=== PATIENT | female | born 1995 | race Caucasian/White ===

== ENCOUNTER 2020-01-04 20:17 | Emergency (ER) | payer SELFPAY ==
[~2020-01-04] VITALS: Ht 149.9 cm; Wt 53.6 kg
[2020-01-04 20:17] VITALS: BP 123/73
[2020-01-04] MEDS ORDERED: AMOX1TAB61 PO (20:47)
--- NOTE | 2020-01-04 20:47 | PHYS DOC ---
Past History Past Medical History: Asthma, Bronchitis, Fibromyalgia, Migraines, Other Additional Past Medical Histor: RLS Past Surgical History: Tubal ligation Alcohol Use: None Additional Alcohol Information: 2 yrs sober General Adult EDM: Chief Complaint: EARACHE/EAR PAIN HPI: HPI: 24 year old female presents with right ear pain for last 2 days. Patient thought she had a pimple in her so she attempted to pop it with a "really hot Q-tip". She states that she had some drainage and thought it would improve, but the pain is still there. She has had intermittent ear infections as an adult. She presents tonight because the pain is radiating into her jaw and cheek. She denies fever or chills. She has no other complaints this time. Review of Systems: Review of Systems: Constitutional: Denies fever or chills Eyes: Denies change in visual acuity HENT: Ear pain Respiratory: Denies cough or shortness of breath Cardiovascular: Denies chest pain or edema GI: Denies abdominal pain, nausea, vomiting, bloody stools or diarrhea : Denies dysuria Musculoskeletal: Denies back pain or joint pain Integument: Denies rash Neurologic: Denies headache, focal weakness or sensory changes Endocrine: Denies polyuria or polydipsia Lymphatic: Denies swollen glands Psychiatric: Denies depression or anxiety Heart Score: Risk Factors: Risk Factors: DM, Current or recent (<one month) smoker, HTN, HLP, family history of CAD, obesity. Risk Scores: Score 0 - 3: 2.5% MACE over next 6 weeks - Discharge Home Score 4 - 6: 20.3% MACE over next 6 weeks - Admit for Clinical Observation Score 7 - 10: 72.7% MACE over next 6 weeks - Early Invasive Strategies Allergies: Allergies: Allergies Coded Allergies Type Severity Reaction Last Updated Verified azithromycin Allergy Unknown 01/04/20 Yes banana Allergy Unknown 01/04/20 Yes benzoyl peroxide Allergy Unknown 01/04/20 Yes lidocaine Allergy Unknown 01/04/20 Yes menthol Allergy Unknown 01/04/20 Yes methyl salicylate Allergy Unknown 01/04/20 Yes Physical Exam: PE: Constitutional: Well developed, well nourished, no acute distress, non-toxic francisca earance. [] HENT: Normocephalic, atraumatic, bilateral external ears normal, oropharynx moist, no oral exudates, nose normal. The superior part of the right eardrum was erythematous. Tenderness along the superior canal. [] Eyes: PERRLA, EOMI, conjunctiva normal, no discharge. [] Neck: Normal range of motion, no tenderness, supple, no stridor. [] Cardiovascular: Heart rate regular rhythm, no murmur [] Lungs & Thorax: Bilateral breath sounds clear to auscultation [] Abdomen: Bowel sounds normal, soft, no tenderness, no masses, no pulsatile masses. [] Skin: Warm, dry, no erythema, no rash. [] Back: No tenderness, no CVA tenderness. [] Extremities: No tenderness, no cyanosis, no clubbing, ROM intact, no edema. [] Neurologic: Alert and oriented X 3, normal motor function, normal sensory function, no focal deficits noted. [] Psychologic: Affect normal, judgement normal, mood normal. [] Current Patient Data: Vital Signs: Vital Signs Date Time Temp Pulse Resp B/P (MAP) Pulse Ox O2 Delivery O2 Flow Rate FiO2 01/04/20 20:17 98.3 98 16 123/73 (90) 98 Room Air EKG: EKG: [] Radiology/Procedures: Radiology/Procedures: [] Course & Med Decision Making: Course & Med Decision Making Pertinent Labs and Imaging studies reviewed. (See chart for details) The patient appears to the right otitis media. I'll treat her with Augmentin for 10 days. I will give the first dose the emergency room. She is stable for [facility] at this time. [] Dragon Disclaimer: Draglianne Disclaimer: This electronic medical record was generated, in whole or in part, using a voice recognition dictation system. Departure Departure: Impression: Primary Impression: Right otitis media Qualified Codes: H65.01 - Acute serous otitis media, right ear Disposition: HOME, SELF-CARE Condition: STABLE Referrals: PCP,NO (PCP) Patient Instructions: Otitis Media, Adult, [id number] Scripts Amoxicillin/Potassium Clav (AUGMENTIN 875-125 TABLET) 1 Each Tablet 1 TAB PO BID for otitis media for 10 Days, #20 TAB 0 Refills Prov: FELICIA RAM DO 01/04/20 FELICIA RAM DO Jan 04, 2020 20:47
[2020-01-04] MEDS: AMOXICILLIN/K CLAV 875/125MG TABLET. PO ONE (20:49)
== END 2020-01-04 20:50 | disposition home or self-care (01) ==
LOC: ER 20:17
DX: H65.01 Acute serous otitis media, right ear (principal); J45.909 Unspecified asthma, uncomplicated; M79.7 Fibromyalgia; G43.909 Migraine, unspecified, not intractable, without status migrainosus; Z88.1 Allergy status to other antibiotic agents; Z88.6 Allergy status to analgesic agent; Z91.018 Allergy to other foods; Z88.8 Allergy status to other drugs, medicaments and biological substances
CPT/HCPCS: 99283

== ENCOUNTER 2020-01-25 14:44 | Emergency (ER) | payer SELFPAY ==
[~2020-01-25] VITALS: Ht 149.9 cm; Wt 53.6 kg
[~2020-01-25 14:44] MED LIST: AMOX1TAB61 PO
[2020-01-25 15:16] VITALS: BP 103/62
--- NOTE | 2020-01-25 15:39 | PHYS DOC ---
Past History Past Medical History: Asthma, Bronchitis, Fibromyalgia, Migraines, Other Additional Past Medical Histor: RLS Past Surgical History: Tubal ligation Alcohol Use: None General Adult EDM: Chief Complaint: EARACHE/EAR PAIN HPI: HPI: 24-year-old female presents with right ear pain. The patient was seen in this emergency room a couple weeks ago and diagnosed with an otitis media. She took her antibiotics as prescribed. The pain has not improved at all. She states that she still has a click when she opens and closes her jaw on the right side. That whole side of her face is hurting at this time. She has not taken any other medications for it. Denies fever chills. Review of Systems: Review of Systems: Constitutional: Denies fever or chills Eyes: Denies change in visual acuity HENT: Right ear and jaw pain Respiratory: Denies cough or shortness of breath Cardiovascular: Denies chest pain or edema GI: Denies abdominal pain, nausea, vomiting, bloody stools or diarrhea : Denies dysuria Musculoskeletal: Denies back pain or joint pain Integument: Denies rash Neurologic: Denies headache, focal weakness or sensory changes Endocrine: Denies polyuria or polydipsia Lymphatic: Denies swollen glands Psychiatric: Denies depression or anxiety Heart Score: Risk Factors: Risk Factors: DM, Current or recent (<one month) smoker, HTN, HLP, family history of CAD, obesity. Risk Scores: Score 0 - 3: 2.5% MACE over next 6 weeks - Discharge Home Score 4 - 6: 20.3% MACE over next 6 weeks - Admit for Clinical Observation Score 7 - 10: 72.7% MACE over next 6 weeks - Early Invasive Strategies Allergies: Allergies: Allergies Coded Allergies Type Severity Reaction Last Updated Verified azithromycin Allergy Unknown 01/04/20 Yes banana Allergy Unknown 01/04/20 Yes benzoyl peroxide Allergy Unknown 01/04/20 Yes lidocaine Allergy Unknown 01/04/20 Yes menthol Allergy Unknown 01/04/20 Yes methyl salicylate Allergy Unknown 01/04/20 Yes Physical Exam: PE: Constitutional: Well developed, well nourished, no acute distress, non-toxic appearance. [] HENT: Normocephalic, atraumatic, bilateral external ears normal, oropharynx moist, no oral exudates, nose normal. Bilateral tympanic membranes normal. Tenderness over the right TMJ with palpable click. [] Eyes: PERRLA, EOMI, conjunctiva normal, no discharge. [] Neck: Normal range of motion, no tenderness, supple, no stridor. [] Cardiovascular:Heart rate regular rhythm, no murmur [] Lungs & Thorax: Bilateral breath sounds clear to auscultation [] Abdomen: Bowel sounds normal, soft, no tenderness, no masses, no pulsatile masses. [] Skin: Warm, dry, no erythema, no rash. [] Back: No tenderness, no CVA tenderness. [] Extremities: No tenderness, no cyanosis, no clubbing, ROM intact, no edema. [] Neurologic: Alert and oriented X 3, normal motor function, normal sensory function, no focal deficits noted. [] Psychologic: Affect normal, judgement normal, mood normal. [] Current Patient Data: Vital Signs: Vital Signs Date Time Temp Pulse Resp B/P (MAP) Pulse Ox O2 Delivery O2 Flow Rate FiO2 01/25/20 15:16 98.2 70 16 103/62 (76) 98 Room Air EKG: EKG: [] Radiology/Procedures: Radiology/Procedures: [] Course & Med Decision Making: Course & Med Decision Making Pertinent Labs and Imaging studies reviewed. (See chart for details) The patient's ears are unremarkable. Based on the history my exam, this sounds like TMJ. I have advised that she ice the area, take ibuprofen regularly, and see if it improves. If not she will follow-up with her dentist for further options. She is stable for discharge at this time. [] Lakeisha Disclaimer: Lakeisha Disclaimer: This electronic medical record was generated, in whole or in part, using a voice recognition dictation system. Departure Departure: Impression: Primary Impression: Right-sided temporomandibular joint pain-dysfunction syndrome Disposition: HOME, SELF-CARE Condition: STABLE Referrals: PCP,NO (PCP) Patient Instructions: Temporomandibular Problems Additional Instructions: You can take 600 mg of ibuprofen 3 times a day or 500 mg of naproxen twice a day for the next 3 to 4 days. You should take either 1 of these with a little bit of food. You can also ice your jaw several times a day. Try to eat soft foods. FELICIA RAM DO January 25, 2020 15:39
== END 2020-01-25 15:42 | disposition home or self-care (01) ==
LOC: ER 14:44
DX: M26.621 Arthralgia of right temporomandibular joint (principal); H92.01 Otalgia, right ear; J45.909 Unspecified asthma, uncomplicated; M79.7 Fibromyalgia; G43.909 Migraine, unspecified, not intractable, without status migrainosus; Z98.51 Tubal ligation status; Z88.1 Allergy status to other antibiotic agents; Z91.018 Allergy to other foods; Z88.8 Allergy status to other drugs, medicaments and biological substances; Z88.6 Allergy status to analgesic agent
CPT/HCPCS: 99282

== ENCOUNTER 2021-01-30 14:17 | Emergency (ER) | payer SELFPAY ==
[~2021-01-30] VITALS: Ht 149.9 cm; Wt 53.6 kg
[2021-01-30] MEDS: KETOROLAC 15 MG/ML VIAL. IVP ONE (15:50)
[2021-01-30] MEDS: IV NORMAL SALINE 1,000ML 1,000 ML IV ONE (15:50)
[2021-01-30] MEDS: CYCLOBENZAPRINE 10 MG TABLET. PO ONE (15:50)
[2021-01-30 16:39] LABS: BASO % 0 % (0-3); CALCIUM 7.9 mg/dL (8.5-10.1); CREATININE 0.9 mg/dL (0.6-1.0); EOS % 0 % (0-3); GFR 75.1; HEMATOCRIT 40.7 % (36.0-47.0); HEMOGLOBIN 13.6 g/dL (12.0-15.5); LYMPH # 1.7 x10^3/uL (1.0-4.8); LYMPH % 10 % (24-48); MEAN CORPUSCULAR HEMOGLOBIN 30 pg (25-35); MEAN CORPUSCULAR HGB CONC 33 g/dL (31-37); MEAN CORPUSCULAR VOLUME 90 fL (79-100); MONO # 0.7 x10^3/uL (0.0-1.1); MONO % 5 % (0-9); NEUT % 85 % (31-73); PLATELET COUNT 237 x10^3/uL (140-400); POTASSIUM 3.8 mmol/L (3.5-5.1); RED BLOOD COUNT 4.55 x10^6/uL (3.50-5.40); RED CELL DISTRIBUTION WIDTH 13.1 % (11.5-14.5); WHITE BLOOD COUNT 16.5 x10^3/uL (4.0-11.0)
[2021-01-30 17:07] LABS: % LYMPHS 15 % (24-48); % MONOS 3 % (0-10); % SEGS 82 % (35-66)
[2021-01-30 17:08] LABS: PLT ESTIMATE ADEQUATE (ADEQUATE)
[2021-01-30] MEDS ORDERED: CYCL-331 PO (17:46)
--- NOTE | 2021-01-30 17:46 | PHYS DOC ---
Past History Past Medical History: Asthma, Bronchitis, Fibromyalgia, Migraines, Other Additional Past Medical Histor: RLS (KADEN MANUEL APRN) Past Surgical History: Tubal ligation (KADEN MANUEL APRN) Alcohol Use: None (KADEN MANUEL APRN) General Adult EDM: Chief Complaint: BACK INJURY HPI: HPI: Patient is a 25-year-old female who presents with lower back pain that radiates down her right leg. Patient states that she was in the shower and felt like she was unable to stand due to the burning and tingling in her right leg. Patient is also reporting an increase in clotting. Patient is currently on her period and states that she is having more clots than normal. Patient denies abdominal pain. Patient denies recent illness. Patient has history of anxiety, asthma, fibromyalgia. (KADEN MANUEL APRN) Review of Systems: Review of Systems: Constitutional: Denies fever or chills Eyes: Denies change in visual acuity HENT: Denies nasal congestion or sore throat Respiratory: Denies cough or shortness of breath Cardiovascular: Denies chest pain or edema GI: Denies abdominal pain, nausea, vomiting, bloody stools or diarrhea : Denies dysuria Musculoskeletal: Reports lower back pain that radiates down right leg Integument: Denies rash Neurologic: Denies headache, focal weakness or sensory changes Endocrine: Denies polyuria or polydipsia Lymphatic: Denies swollen glands Psychiatric: Reports depression or anxiety (KADEN MANUEL APRN) Current Medications: Current Meds: Current Medications Medications (Trade) Dose Ordered Sig/Parth Start Time Stop Time Status Last Admin Dose Admin Cyclobenzaprine HCl (Flexeril) 10 mg 1X ONCE 01/30/21 15:30 01/30/21 15:35 DC 01/30/21 15:50 10 MG Ketorolac Tromethamine (Toradol 15mg Vial) 15 mg 1X ONCE 01/30/21 15:30 01/30/21 15:35 DC 01/30/21 15:50 15 MG Sodium Chloride 1,000 ml @ 1,000 mls/hr 1X ONCE 01/30/21 15:30 01/30/21 16:29 DC 01/30/21 15:50 1,000 MLS/HR (KADEN MANUEL APRN) Allergies: Allergies: Allergies Coded Allergies Type Severity Reaction Last Updated Verified azithromycin Allergy Unknown 4/16/20 Yes banana Allergy Unknown 01/04/20 Yes benzoyl peroxide Allergy Unknown 01/04/20 Yes lidocaine Allergy Unknown 01/04/20 Yes menthol Allergy Unknown 01/04/20 Yes methyl salicylate Allergy Unknown 01/04/20 Yes (KADEN MANUEL MANAGER ICU) Physical Exam: PE: Constitutional: Well developed, well nourished, no acute distress, non-toxic appearance. [] HENT: Normocephalic, atraumatic, bilateral external ears normal, oropharynx moist, no oral exudates, nose normal. [] Eyes: PERRLA, EOMI, conjunctiva normal, no discharge. [] Neck: Normal range of motion, no tenderness, supple, no stridor. [] Cardiovascular:Heart rate regular rhythm, no murmur [] Lungs & Thorax: Bilateral breath sounds clear to auscultation [] Abdomen: Bowel sounds normal, soft, no tenderness, no masses, no pulsatile masses. [] Skin: Warm, dry, no erythema, no rash. [] Back: Lower back tenderness, no CVA tenderness. [] Extremities: Right leg tenderness, no cyanosis, no clubbing, ROM intact, no edema. [] Neurologic: Alert and oriented X 3, normal motor function, right leg tingling and burning Psychologic: Affect normal, judgement normal, mood normal. [] (KADEN MANUEL MANAGER ICU) Current Patient Data: Labs: Laboratory Tests Test 01/30/21 14:55 01/30/21 15:50 POC Urine HCG, Qualitative hcg negative (Negative) White Blood Count 16.5 x10^3/uL (4.0-11.0) H Red Blood Count 4.55 x10^6/uL (3.50-5.40) Hemoglobin 13.6 g/dL (12.0-15.5) Hematocrit 40.7 % (36.0-47.0) Mean Corpuscular Volume 90 fL (79-100) Mean Corpuscular Hemoglobin 30 pg (25-35) Mean Corpuscular Hemoglobin Concent 33 g/dL (31-37) Red Cell Distribution Width 13.1 % (11.5-14.5) Platelet Count 237 x10^3/uL (140-400) Neutrophils (%) (Auto) 85 % (31-73) H Lymphocytes (%) (Auto) 10 % (24-48) L Monocytes (%) (Auto) 5 % (0-9) Eosinophils (%) (Auto) 0 % (0-3) Basophils (%) (Auto) 0 % (0-3) Neutrophils # (Auto) 14.0 x10^3uL (1.8-7.7) H Lymphocytes # (Auto) 1.7 x10^3/uL (1.0-4.8) Monocytes # (Auto) 0.7 x10^3/uL (0.0-1.1) Eosinophils # (Auto) 0.0 x10^3/uL (0.0-0.7) Basophils # (Auto) 0.0 x10^3/uL (0.0-0.2) Segmented Neutrophils % 82 % (35-66) H Lymphocytes % 15 % (24-48) L Monocytes % 3 % (0-10) Platelet Estimate Adequate (ADEQUATE) Sodium Level 144 mmol/L (136-145) Potassium Level 3.8 mmol/L (3.5-5.1) Chloride Level 110 mmol/L (98-107) H Carbon Dioxide Level 25 mmol/L (21-32) Anion Gap 9 (6-14) Blood Urea Nitrogen 12 mg/dL (7-20) Creatinine 0.9 mg/dL (0.6-1.0) Estimated GFR (Cockcroft-Gault) 75.1 Glucose Level 79 mg/dL (70-99) Calcium Level 7.9 mg/dL (8.5-10.1) L (KADEN MANUEL APRN) EKG: EKG: [] (KADEN MANUEL APRN) Radiology/Procedures: Radiology/Procedures: [] (KADEN MANUEL APRN) Heart Score: C/O Chest Pain: No Risk Factors: Risk Factors: DM, Current or recent (<one month) smoker, HTN, HLP, family history of CAD, obesity. Risk Scores: Score 0 - 3: 2.5% MACE over next 6 weeks - Discharge Home Score 4 - 6: 20.3% MACE over next 6 weeks - Admit for Clinical Observation Score 7 - 10: 72.7% MACE over next 6 weeks - Early Invasive Strategies (KADEN MANUEL APRN) Course & Med Decision Making: Course & Med Decision Making Pertinent Labs and Imaging studies reviewed. (See chart for details) [] 25-year-old female presents with lower back pain that radiates down her right leg. Patient states that she is on her period and had an increase in clots. CBC ordered to rule out blood loss. All labs unremarkable. UA negative for infection. Patient was given Toradol and Flexeril and states that her symptoms have resolved. Patient most likely has a sciatic nerve pain. Patient sent home with Flexeril and instructed to take ibuprofen as well for pain. Patient given strict return precautions if she has an increase in bleeding. Patient is hemodynamically stable. Patient states that she understands discharge instru ctions and okay with discharge. (KADEN MANUEL APRN) Dragon Disclaimer: Dragon Disclaimer: This electronic medical record was generated, in whole or in part, using a voice recognition dictation system. (KADEN MANUEL APRN) Attending Co-Sign The patient was seen and interviewed as well as examined at the bedside. The chart was reviewed. The case was discussed. Agree with the plan of care. (FELICIA RAM DO) Departure Departure: Impression: Primary Impression: Sciatic nerve pain Qualified Codes: M54.31 - Sciatica, right side Disposition: HOME / SELF CARE / HOMELESS Condition: STABLE Referrals: PCP,NO (PCP) Patient Instructions: Sciatica, [id number] Additional Instructions: You were seen in the emergency room for lower back pain that radiates down right leg. You were given Toradol and Flexeril which improved your symptoms. I am giving a prescription for home for Flexeril. You can take ibuprofen also to help with discomfort. You to return to the emergency room you have an increase in bleeding or pain. EMERGENCY DEPARTMENT GENERAL DISCHARGE INSTRUCTIONS Thank you for coming to [facility] (ED) today and trusting us with you care. We trust that you had a positivie experience in our Emergency Department. If you wish to speak to the department management, you may call the director at [phone]. YOUR FOLLOW UP INSTRUCTIONS ARE FOLLOWS: 1. Do you have a private Doctor? If you do not have a private doctor, please ask for a resource list of physicians or clinics that may be able to assist you with follow up care. 2. The Emergency Physician has interpreted your x-rays. The X-Ray specialist will also review them. If there is a change in the findings, you will be notified in 48 hours when at all possible. 3. A lab test or culture has been done, your results will be reviewed and you will be notified if you need a change in treatment. ADDITIONAL INSTRUCTIONS AND INFORMATION: 1. Your care today has been supervised by a physician who is specially trained in emergency care. Many problems require more than one evaluation for a complete diagnosis and treatment. We recommend that you schedule your follow up appointment as recommended to ensure complete treatment of you illness or injury. If you are unable to obtain follow up care and continue to have a problem, or if your condition worsens, we recommend that you return to the ED. 2. We are not able to safely determine your condition over the phone nor are we able to give sound medical advice over the phone. For these safety reasons, if you call for medical advice we will ask you to come to the ED for further evaluation. 3. If you have any questions regarding these discharge instructions please call the ED at [phone]. SAFETY INFORMATION: In the interest of safety, wellness, and injury prevention; we encourage you to wear your sealbelt, if you smoke; quite smoking, and we encourage family to use a protective helmet for bicycling and other sporting events that present an increased risk for head injury. IF YOUR SYMPTOMS WORSEN OR NEW SYMPTOMS DEVELOP, OR YOU HAVE CONCERNS ABOUT YOUR CONDITION; OR IF YOUR CONDITION WORSENS WHILE YOU ARE WAITING FOR YOUR FOLLOW UP APPOINTMENT; EITHER CONTACT YOUR PRIMARY CARE DOCTOR, THE PHYSICIAN WHOSE NAME AND NUMBER YOU WERE GIVEN, OR RETURN TO THE ED IMMEDIATELY. Scripts Cyclobenzaprine Hcl (CYCLOBENZAPRINE HCL) 10 Mg Tablet 1 TAB PO TID PRN for PAIN for 10 Days, #30 TAB 0 Refills Prov: KADEN MANUEL APRN 01/30/21 KADEN MANUEL APRN January 30, 2021 17:46 FELICIA RAM DO January 31, 2021 06:38
[2021-01-30 17:50] VITALS: BP 112/63
== END 2021-01-30 18:00 | disposition home or self-care (01) ==
LOC: ER 14:17
DX: M54.41 Lumbago with sciatica, right side (principal); J45.909 Unspecified asthma, uncomplicated; Z88.1 Allergy status to other antibiotic agents; Z88.6 Allergy status to analgesic agent; Z88.8 Allergy status to other drugs, medicaments and biological substances; Z98.51 Tubal ligation status
CPT/HCPCS: 36415; 80048; 81025; 85007; 85025; 96374; 99283; J1885; J7030

== ENCOUNTER 2021-09-26 10:03 | Emergency (ER) | payer SELFPAY ==
[~2021-09-26] VITALS: Ht 149.9 cm; Wt 51.8 kg
[~2021-09-26 10:03] MED LIST changes: +CYCL10TA19 PO
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
[2021-09-26 11:32] LABS: BILIRUBIN,URINE NEG (NEG); CLARITY,URINE CLOUDY; COLOR,URINE YELLOW; GLUCOSE,URINE NEG (NEG); NITRITE,URINE NEG (NEG); UROBILINOGEN,URINE 0.2 mg/dL (0.2 mg/dL)
[2021-09-26 11:33] LABS: AMORPHOUS SEDIMENT,UR PRESENT /HPF; BACTERIA,URINE 0 /HPF (0-FEW); RBC,URINE RARE /HPF (0-2); SQUAMOUS EPITHELIAL CELL,UR MANY /LPF
[2021-09-26] MEDS ORDERED: KETOROLAC 60 MG/2 ML VIAL. IM ONE (11:45)
[2021-09-26 12:19] LABS: INFLUENZA A PATIENT NEGATIVE (NEGATIVE); INFLUENZA B PATIENT NEGATIVE (NEGATIVE)
[2021-09-26] MEDS ORDERED: ONDA4TAB12 PO (12:33)
[2021-09-26] MEDS ORDERED: SULF1TAB24 PO (12:33)
[2021-09-26 12:35] VITALS: BP 101/52
== END 2021-09-26 13:03 | disposition home or self-care (01) ==
LOC: ER 10:05
DX: U07.1 COVID-19 (principal); M25.511 Pain in right shoulder; M54.2 Cervicalgia; M54.59 Other low back pain; J45.909 Unspecified asthma, uncomplicated; M79.7 Fibromyalgia; G43.909 Migraine, unspecified, not intractable, without status migrainosus; F17.210 Nicotine dependence, cigarettes, uncomplicated; Z86.2 Personal history of diseases of the blood and blood-forming organs and certain disorders involving the immune mechanism; Z88.1 Allergy status to other antibiotic agents; Z91.018 Allergy to other foods; Z88.4 Allergy status to anesthetic agent; Z88.8 Allergy status to other drugs, medicaments and biological substances
CPT/HCPCS: 81001; 81025; 87086; 87426; 87804; 96372; 99283; J1885